=== PATIENT | male | born 1985 | race Caucasian/White ===

== ENCOUNTER → 2025-05-31 | Emergency (ER) | payer SELFPAY ==
[~2025-05-31] VITALS: Ht 182.9 cm; Wt 85.0 kg
[2025-05-31 11:06] VITALS: BP 124/81; TEMP 37.1; O2SAT 100
[2025-05-31 11:10] VITALS: PULSE 86; RESP 18; O2SAT 99
[2025-05-31 14:02] LABS: INFLUENZA TYPE A Presumptive Negative (Pres. Neg.); INFLUENZA TYPE B Presumptive Negative (Pres. Neg.)
== END ==
LOC: ER 10:59
DX: R05.9 Cough, unspecified (principal); Z20.822 Contact with and (suspected) exposure to COVID-19
CPT/HCPCS: 87426; 87804; 99283